=== PATIENT | female | born 1960 | race Caucasian/White ===

== ENCOUNTER → 2021-02-28 09:44 | Outpatient (CLI) | payer OTHER, SELFPAY ==
--- NOTE | 2021-02-28 | IMM_PTH ---
PATIENT: GIANCARLO JAQUEZ LOC: [facility] U#:[id number] AGE/SX: 65/F ROOM: RE02/28/[address]: Dr. Tahir Mcmullen MD : 1960 BED: DIS: SPEC #: [id number] RECD: 03/01/21 14:45 STATUS: SORUAV RESebastian #: [id number] MAR: 02/28/21 00:[address]: Tahir Mcmullen DEPT: IMMUNOHISTOCHEMISTRY RECD BY: Angeli Richards ENTERED: 03/01/21 14:47 SP TYPE: IMMUNO OTHR DR: Dr. Heaven Carrillo, DO Tissues: Neck, NOS Procedures: BCL-2 (add) BCL-6 (add) CD10 (add) CD138 (add) CD15 (add) CD20 (add) CD23 (add) CD3 (add) CD30 (add) CD43 (add) CD45 (add) CD5 (add) CD79A (add) CYCLIN (add) KAPPA (add) LAMBDA (add) MUM1 (add) C-MYC (add) Pankeratin (initial) PHYSICIAN & [place] [phone] SPECIMEN INFORMATION: Tissue Source: Right neck node, FNA Clinical Info: Right neck mass level 2 Specimen Number: [id number] CPT code: 77119, 06150 x18 METHODOLOGY: Deparaffinized sections of prefer/formalin-fixed tissue or PAP/DQ stained slides are incubated with monoclonal/polyclonal antibodies/oligonucleotide probes. Localization is made via biotin free immunoperoxidase method. Appropriate controls are performed and reacted as expected. Results on target cell population are indicated in the following table: RESULTS: ANTIBODY / CLONE RESULT AE1-3 (AE1/AE3/PCK26) negative CD3 (PS1) positive CD5 (SP10) positive CD10 (56C6) negative CD15 (MMA) negative CD20 (L26) positive, rare CD23 (1B12) negative CD30 (Rommel-H2) negative CD43 (L60) positive CD45 (RP2/18) positive CD79a (11E3) positive CD138 (B-A38) negative BCL-2 (bcl-2/100/D5) negative BCL-6 (EH548B/A8) negative Cyclin D1/BCL-1 (SP4) negative MUM1 (MRQ-43) negative C-MYC (Y69) negative [place] (polyclonal) negative Lambda (polyclonal) negative These tests were developed and their performance characteristics determined by [facility]. They may not have been cleared or approved by the U.S. Food and Drug Administration. The FDA has determined that such clearance or approval is not necessary. The above immunohistochemical/dualISH markers are ordered and reviewed by the Pathologist. INTERPRETATION: Right neck node, fine needle aspiration: No evidence of lymphoma. AM:alex 03/02/2021
--- NOTE | 2021-02-28 10:00 | ASPOS_PTH ---
PATIENT: GIANCARLO JAQUEZ LOC: [facility] U#:[id number] AGE/SX: 65/F ROOM: RE02/28/[address]: Dr. Tahir Mcmullen MD : 1960 BED: DIS: SPEC #: [id number] RECD: 02/28/21 11:19 STATUS: SOURAV DELEON #: [id number] MAR: 02/28/21 10:[address]: Tahir Mcmullen DEPT: CYTOLOGY RECD BY: Nancy Bhatia ENTERED: 02/28/21 11:19 SP TYPE: ASP HERE OTHR DR: Dr. Heaven Carrillo, DO Tissues: Neck, NOS Procedures: Surgery Specimen Level IV Cytology Other Fine Needle Asp on Site HEADER OPERATION: Fine needle aspiration right neck node PRE-OP DIAGNOSIS: Right level 2 neck mass TISSUE SUBMITTED: FNA right neck node DIAGNOSIS CYTOLOGY Fine needle aspiration, right neck mass (smears and cell block): No evidence of B-cell lymphoma. COMMENT The specimen is evaluated at the time of FNA by Dr. Luque. Immediate Evaluation = Abundant monomorphic small lymphocytic population. Immunohistochemistry ([id number]) supports the above diagnosis. FLOW analysis does not reveal evidence of a lymphoma. The B-cells are polytypic. The T-cell population does not reveal an aberrant phenotype. Clinical correlation is suggested. The complete FLOW report is viewable in EMR. CYTOLOGY STUDY Slides are reviewed. CYTOLOGY GROSS Received is 0.25 ml of reddish-davis fluid labeled with the patient's name, and designated right neck node. Two imprints and one paps are made from the submitted fluid and the rest is added to CytoLyt for cell block preparation. Submitted for cytology study. / AM:alex 02/28/2021 TC:5 CPT: 58141,29311, 92436,43220.
== END ==
PROVIDERS: Visit Provider Otolaryngology
DX: R22.1 Localized swelling, mass and lump, neck (principal)
CPT/HCPCS: 10021; 88161; 88305; 88341; 88342

== ENCOUNTER 2021-04-08 14:20 | Outpatient (CLI) | payer OTHER, SELFPAY ==
--- NOTE | 2021-04-08 14:26 | EKG12_ITS ---
Test Reason : PREOP Blood Pressure : / mmHG Vent. Rate : 079 BPM Atrial Rate : 079 BPM P-R Int : 136 ms QRS Dur : 078 ms QT Int : 396 ms P-R-T Axes : -14 054 063 degrees QTc Int : 454 ms Normal sinus rhythm Normal ECG Confirmed by PHYLICIA GUNN, MILEY ([id number]), brands editor DAVID WHITNEY ([id number]) on 04/11/2021 10:02:01 A M Referred By: Sam Mcmullen Confirmed By:GRAEME WHATLEY MD
[2021-04-08 16:33] LABS: Hematocrit 42.9 % (37-47); Hemoglobin 13.8 g/dL (12.0-15.0); Mean Corp Hgb Conc 32.2 g/dL (32-36); Mean Corpuscular Hgb 28.4 pg (27.0-32.0); Mean Corpuscular Volume 88.3 fL (81-99); Mean Platelet Vol. 11.6 fl (6.2-12.0); Platelet Count 230 K/mm3 (150-450); RBC Distribution Width CV 12.4 % (11.6-14.6); RBC Distribution Width SD 40.1 fl (35.1-43.9); Red Blood Count 4.86 M/mm3 (4.2-5.4); White Blood Count 6.8 K/mm3 (4.4-11.0)
[2021-04-08 17:01] LABS: Anion Gap 4 (5-15); BUN 14 mg/dL (7-18); BUN/Creat Ratio 20.8 RATIO (10-20); Calcium,Total 9.4 mg/dL (8.5-10.1); Chloride 107 mmol/L (98-107); Creatinine, Serum 0.67 mg/dL (0.55-1.02); EST Glomerular Filtration Rate 95 mL/min (>60); Est Glom Filt Rate - Afr Amer 115 mL/min (>60); Glucose 108 mg/dL (74-106); Potassium 3.8 mmol/L (3.5-5.1); Sodium Level 140 mmol/L (136-145)
== END 2021-04-08 23:59 | disposition short-term general hospital (02) ==
PROVIDERS: Referring Provider Otolaryngology; Visit Provider Otolaryngology
DX: Z01.812 Encounter for preprocedural laboratory examination (principal); R22.1 Localized swelling, mass and lump, neck
CPT/HCPCS: 36415; 80048; 85027; 93005